=== PATIENT | male | born 1960 | race Caucasian/White ===

== ENCOUNTER 2022-05-30 09:13 | Inpatient (IN) ==
[2022-05-30] MEDS ORDERED: IOPAMIDOL 100 ML BOTTLE IV ONE (09:14)
--- NOTE | 2022-05-30 09:24 | Emergency Department Note ---
HPI General Chief complaint: Constipation Stated complaint: Trouble breathing/sleeping Time Seen by Provider: 05/30/22 09:23 Source: patient Mode of arrival: ambulatory Limitations: no limitations History of Present Illness HPI Narrative: Narrative: Patient is a 61-year-old male with a complex past medical history who presents to the emergency department due to abdominal pain and absence of bowel movement for the last 4 to 5 days. Patient states that he has had a bowel obstruction previously, and that he had similar symptoms at that time. He endorses absence of bowel movement for 4 to 5 days, but does endorse continued gas. He states that he has mild abdominal pain and also has developed nausea and vomiting this morning. He on review of systems also endorses worsening shortness of breath and absence of urination over the last 2 days. He denies any other symptoms at this time. Related Data Previous Rx's Medication Instructions Recorded aspirin 81 mg tablet,delayed 81 mg PO QDAY #90 tabs 08/25/20 release (Adult Low Dose Aspirin) multivitamin 1 tab PO QAM #90 tabs 08/25/20 omega-3 fatty acids 1,000 mg 1,000 mg PO QDAY #90 caps 08/25/20 capsule (Fish Oil Concentrate) omeprazole magnesium 20 mg 20 mg PO QDAY #90 tabs 08/25/20 tablet,delayed release (Prilosec OTC) losartan 100 mg tablet 100 mg PO QDAY #90 tabs 01/11/22 montelukast 10 mg tablet 10 mg PO QDAY #90 tabs 02/10/22 albuterol sulfate 90 mcg/actuation 2 inh inhalation Q6H PRN shortness 03/02/22 breath activated powder inhaler of breath or wheezing #1 ea fluticasone fur. 100 mcg-umeclid 1 inh inhalation Q24H #180 ea 03/02/22 62.5 mcg-vilant 25 mcg inhalat.powder (Trelegy Ellipta) trazodone 50 mg tablet 100 mg PO QHS PRN insomnia #180 04/05/22 tabs furosemide 20 mg tablet (Lasix) 20 mg PO QDAY #30 tabs 05/21/22 sertraline 25 mg tablet 25 mg PO QDAY #60 tabs 05/26/22 Allergies Allergy/AdvReac Type Severity Reaction Status Date / Time No Known Drug Allergies Allergy Verified 05/30/22 08:30 Review of Systems ROS ROS Narrative: Narrative: Constitutional: Denies fever or weakness Eyes: Denies eye pain or vision change ENT ED: Denies throat pain, hearing loss or rhinorrhea Cardiovascular: Reports dyspnea on exertion, orthopnea and edema; Denies chest pain Respiratory: Reports shortness of breath; Denies cough Gastrointestinal: Reports abdominal pain, nausea and vomiting; Denies diarrhea, constipation, hematochezia or melena Genitourinary: Reports other (Decreased frequency of urination); Denies dysuria, frequency or hematuria Musculoskeletal: Denies back pain or myalgia Integumentary: Denies rash or lesions Neurological: Denies headache, weakness, numbness, confusion, abnormal gait or dizziness Psychiatric: Denies anxiety Endocrine: Denies fatigue or polyuria Hematological/Lymphatic: Denies easy bleeding or easy bruising PFSH Narrative Patient History Narrative: Narrative: Medical/Surgical/Family History All Active Problems (Updated 05/30/22 @ 15:06 by Stef Manning MD) CHF exacerbation (Acute) Pulmonary hypertension (Acute) Restrictive lung disease (Acute) Nocturnal hypoxemia (Acute) Bilateral pleural effusion (Acute) CHF (congestive heart failure) (Acute) Breath shortness (Acute) Obstructive sleep apnea (Acute) Chronic GERD (Acute) Dyspnea (Acute) Long COVID (Chronic) Pneumonia due to COVID-19 virus (Acute) Viral syndrome (Acute) Bronchitis (Acute) No pertinent family history (Chronic) Seasonal affective disorder (Chronic) Depression (Chronic) Fasting hyperglycemia (Chronic) Osteoarthritis of left hip (Chronic) Chronic insomnia (Chronic) Dysphagia, unspecified (Chronic) Tinnitus (Chronic) Hearing loss (Chronic) Somatic dysfunction of lumbar region (Chronic) Somatic dysfunction of spine, sacral (Chronic) Right hip pain (Chronic) Bursitis of right shoulder (Chronic) Lumbar radiculopathy (Chronic) Paresthesia (Chronic) Heart murmur, systolic (Chronic) Actinic keratosis (Chronic) Dysphagia, oropharyngeal phase (Chronic) Patent foramen ovale (Chronic) Mitral regurgitation (Chronic) Medical History (Updated 05/30/22 @ 15:06 by Stef Manning MD) Actinic keratosis Bronchitis Bursitis of right shoulder Chronic GERD Chronic insomnia Depression Dysphagia, oropharyngeal phase Dysphagia, unspecified Dyspnea Fasting hyperglycemia GERD (gastroesophageal reflux disease) Hearing loss Heart murmur, systolic Hyperlipidemia Hypertension Long COVID Lumbar radiculopathy Mitral regurgitation No pertinent family history Nocturnal hypoxemia Obstructive sleep apnea Osteoarthritis of left hip Paresthesia Patent foramen ovale Pulmonary hypertension Restrictive lung disease Right hip pain Seasonal affective disorder Somatic dysfunction of lumbar region Somatic dysfunction of spine, sacral Tinnitus Surgical History No pertinent past surgical history Family History Other No pertinent family history Social History Smoking Status: Never smoker and Smokeless tobacco Exam Narrative Narrative: Narrative: General Limitations: no limitations General appearance: Present alert and in no apparent distress; Absent anxious, appears intoxicated or sleepy Head Head: Present atraumatic and normocephalic Eye Eye: Present PERRL and EOMI; Absent scleral icterus or nystagmus ENT ENT: Present mucous membranes moist; Absent nasal congestion Neck Neck: Present full ROM; Absent tenderness Chest Chest: Present normal inspection and symmetric chest wall rise; Absent tenderness Respiratory Respiratory: Present normal lung sounds bilaterally; Absent respiratory distress or accessory muscle use Cardiovascular Cardiovascular: Present normal rhythm, tachycardia and normal heart sounds Adbominal Abdominal: Present soft, tenderness (Mild and generalized) and normal bowel sounds; Absent distention, guarding, rebound, rigidity, Delgado's sign, Rovsing's sign or tenderness at McBurney's Point Extremities Extremities: Present normal inspection and full ROM; Absent tenderness Back Back: Present normal inspection and full ROM; Absent tenderness Neurological Neurological: Present alert and oriented X3 Psychiatric Psychiatric: Present normal affect and normal mood Skin Skin: Present warm (WNL), dry and normal color Course Vital Signs Vital signs: Vital Signs Temperature 97.7 F 05/30/22 09:13 Pulse Rate 131 H 05/30/22 09:13 Respiratory Rate 19 05/30/22 09:13 Blood Pressure 157/107 05/30/22 09:13 Pulse Oximetry (%) 96 05/30/22 09:13 Oxygen Delivery Method 05/30/22 09:13 Temperature 97.7 F 05/30/22 09:16 Pulse Rate 108 H 05/30/22 14:29 Respiratory Rate 19 05/30/22 09:16 Blood Pressure 147/119 05/30/22 14:01 Pulse Oximetry (%) 96 05/30/22 14:29 Oxygen Delivery Method 05/30/22 13:00 Oxygen Flow Rate (L/min) 2 05/30/22 13:00 [facility] MDM Narrative Medical decision making narrative: Narrative: Patient is a 61-year-old male Who presents to the emergency department due to concern for bowel obstruction and shortness of breath. Absence of bowel movement for the last 4 to 5 days is concerning for potential bowel obstruction, but patient has been passing gas. Patient has had decreased fluid and food intake, so it is possible that decreased bowel movements is for this reason. It is also possible patient has an ileus. Patient shortness of breath is concerning due to history of CHF, and patient's orthopnea and dyspnea on exertion at this time. Patient CT scan is reassuring that there is not a bowel obstruction at this time, but there is sign of edema. Patient's labs do show increased liver function tests. Patient does have an elevated BNP, and is desaturating intermittently at this time. These are concerning for CHF exacerbation especially with history of absence of urination over the last 2 days. I have given him a dose of IV Lasix with some improvement in his symptoms, but he continues to desaturate. For this reason I spoke to Dr. Harding who agreed to see and evaluate patient for admission. Lab Data Result diagrams: 05/30/22 09:46 Labs: Lab Results 05/30/22 05/30/22 05/30/22 Range/Units 09:45 09:46 09:46 WBC 13.8 H (4.5-11.0) K/mcL RBC 4.68 (4.63-6.08) M/mcL Hgb 14.8 (13.7-17.5) g/dL Hct 43.9 (40.1-51.0) % POC Hct 45.0 (41-55) MCV 93.8 (80.0-100.0) fL MCH 31.6 (26.0-34.0) pg MCHC 33.7 (31.0-36.0) g/dL RDW 12.8 (11.5-14.5) % Plt Count 273 (140-440) K/mcL MPV 10.6 (8.8-12.5) fL Immature Gran % (Auto) 0.6 H (0.0-0.5) % Neut % (Auto) 77.2 (38.0-78.0) % Lymph % (Auto) 10.7 L (15.5-49.0) % Mcmullen % (Auto) 10.7 (1.0-12.0) % Eos % (Auto) 0.4 (0.0-7.0) % Baso % (Auto) 0.4 (0.0-2.0) % Lymph # (Auto) 1.48 L (1.50-4.80) K/mcL Mcmullen # (Auto) 1.47 H (0.10-0.90) K/mcL Eos # (Auto) 0.06 (0.00-0.70) K/mcL Baso # (Auto) 0.05 (0.00-0.30) K/mcL Immature Gran # 0.08 H (0.00-0.05) K/mcl Absolute Neutrophils 10.64 H (1.80-8.00) K/mcL POC Sodium 139 (133-145) POC Potassium 3.5 (3.3-5.1) POC Chloride 100 (96-108) POC Total CO2 27.0 (22-30) POC BUN 31 H (6-20) POC Creatinine 1.1 (0.6-1.2) POC Glucose 120 H (70-105) POC WB Ioniz Calcium 1.15 L (1.16-1.32) Total Bilirubin 3.2 H (0.1-1.0) mg/dL Direct Bilirubin 1.3 H (<0.3) mg/dL AST 93 H (<40) U/L ALT 170 H (<40) U/L Alkaline Phosphatase 156 H (39-117) U/L NT-Pro-B Natriuret Pep (<125.0) pg/mL Total Protein 6.8 (5.9-8.4) gm/dL Albumin 4.5 (3.2-5.2) gm/dL Globulin 2.3 (2.2-3.7) gm/dL Lipase 32 (7-60) U/L 05/30/22 05/30/22 Range/Units 09:46 11:12 WBC (4.5-11.0) K/mcL RBC (4.63-6.08) M/mcL Hgb (13.7-17.5) g/dL Hct (40.1-51.0) % POC Hct (41-55) MCV (80.0-100.0) fL MCH (26.0-34.0) pg MCHC (31.0-36.0) g/dL RDW (11.5-14.5) % Plt Count (140-440) K/mcL MPV (8.8-12.5) fL Immature Gran % (Auto) (0.0-0.5) % Neut % (Auto) (38.0-78.0) % Lymph % (Auto) (15.5-49.0) % Mcmullen % (Auto) (1.0-12.0) % Eos % (Auto) (0.0-7.0) % Baso % (Auto) (0.0-2.0) % Lymph # (Auto) (1.50-4.80) K/mcL Mcmullen # (Auto) (0.10-0.90) K/mcL Eos # (Auto) (0.00-0.70) K/mcL Baso # (Auto) (0.00-0.30) K/mcL Immature Gran # (0.00-0.05) K/mcl Absolute Neutrophils (1.80-8.00) K/mcL POC Sodium (133-145) POC Potassium (3.3-5.1) POC Chloride (96-108) POC Total CO2 (22-30) POC BUN (6-20) POC Creatinine 1.1 (0.6-1.2) POC Glucose (70-105) POC WB Ioniz Calcium (1.16-1.32) Total Bilirubin (0.1-1.0) mg/dL Direct Bilirubin (<0.3) mg/dL AST (<40) U/L ALT (<40) U/L Alkaline Phosphatase (39-117) U/L NT-Pro-B Natriuret Pep 5846.0 H (<125.0) pg/mL Total Protein (5.9-8.4) gm/dL Albumin (3.2-5.2) gm/dL Globulin (2.2-3.7) gm/dL Lipase (7-60) U/L Discharge Plan Patient/Caregiver Discharge Instructions Pt seen by LOADER ENGINEER/PA only: No Clinical Impression: CHF exacerbation Patient Disposition: Xfer As Inpt ([facility]) Follow up with: Rodrigo Barrera PA-C [Primary Care Provider] - Prescriptions: No Action trazodone 50 mg tablet 100 mg PO QHS PRN (Reason: insomnia) Qty: 180 1RF sertraline 25 mg tablet 25 mg PO QDAY Qty: 60 0RF aspirin [Adult Low Dose Aspirin] 81 mg tablet,delayed release (DR/EC) 81 mg PO QDAY Qty: 90 3RF multivitamin Tablet 1 tab PO QAM Qty: 90 3RF omega-3 fatty acids [Fish Oil Concentrate] 1,000 mg capsule 1,000 mg PO QDAY Qty: 90 3RF Rx Instructions: 4 daily omeprazole magnesium 20 mg tablet,delayed release 20 mg tablet,delayed release (DR/EC) 20 mg PO QDAY Qty: 90 3RF Trelegy Ellipta 100-62.5-25 mcg blister with device 0RF losartan 100 mg tablet 100 mg PO QDAY Qty: 90 3RF montelukast 10 mg tablet 10 mg PO QDAY Qty: 90 1RF albuterol sulfate 90 mcg/actuation aerosol powdr breath activated 2 inh inhalation Q6H PRN (Reason: shortness of breath or wheezing) Qty: 1 0RF Trelegy Ellipta 100-62.5-25 mcg blister with device 1 inh inhalation Q24H Qty: 180 0RF furosemide [Lasix] 20 mg tablet 20 mg PO QDAY Qty: 30 0RF
[2022-05-30 09:49] LABS: POC Calcium, Ionized 1.15 (1.16-1.32); POC Creatinine 1.1 (0.6-1.2); POC Potassium 3.5 (3.3-5.1)
[2022-05-30 10:47] LABS: Basophils # (Auto) 0.05 K/mcL (0.00-0.30); Basophils % (Auto) 0.4 % (0.0-2.0); Eosinophils # (Auto) 0.06 K/mcL (0.00-0.70); Eosinophils % (Auto) 0.4 % (0.0-7.0); Hematocrit 43.9 % (40.1-51.0); Hemoglobin 14.8 g/dL (13.7-17.5); Lymphocytes # (Auto) 1.48 K/mcL (1.50-4.80); Lymphocytes % (Auto) 10.7 % (15.5-49.0); Mean Cell Volume 93.8 fL (80.0-100.0); Mean Corpuscular HGB Conc 33.7 g/dL (31.0-36.0); Mean Platelet Volume 10.6 fL (8.8-12.5); Monocytes # (Auto) 1.47 K/mcL (0.10-0.90); Monocytes % (Auto) 10.7 % (1.0-12.0); Neutrophils % (Auto) 77.2 % (38.0-78.0); Platelet Count 273 K/mcL (140-440); RBC 4.68 M/mcL (4.63-6.08); Red Cell Distribution Width 12.8 % (11.5-14.5); WBC 13.8 K/mcL (4.5-11.0)
[2022-05-30 11:01] LABS: ALT/SGPT 170 U/L (<40); AST/SGOT 93 U/L (<40); Albumin 4.5 gm/dL (3.2-5.2); Alkaline Phosphatase 156 U/L (39-117); Bilirubin,Direct 1.3 mg/dL (<0.3); Bilirubin,Total 3.2 mg/dL (0.1-1.0); Globulin 2.3 gm/dL (2.2-3.7)
--- NOTE | 2022-05-30 11:17 | Cat Scan Report ---
CLINICAL INFORMATION: Abdominal pain COMPARISON: Chest CT one week prior 05/21/2022. TECHNIQUE: Following enteric contrast, 80 cc of Isovue-370 were injected intravenously, and 60 seconds later, 0.625 mm helical slices were obtained from the mid heart through the subtrochanteric regions. Following reconstruction, 2.5 mm sagittal, coronal and axial reformatted images were processed and reviewed at bone, lung and soft tissue windows. Five minutes later, 0.625 mm helical slices were obtained from the mid heart through the kidneys and viewed at soft tissue windows.The exam was performed using radiation dose optimization techniques including, but not limited to, automated exposure control, adjustment of the mA and/or kV according to patient size and use of iterative reconstruction technique. FINDINGS: The lung bases are now clear and the effusions have resolved. No effusions. The visualized heart remains mildly enlarged. Abdominal images show mild wall thickening the gallbladder with pericholecystic fluid. The liver is inhomogeneous and slightly decreased in size with asymmetric enlargement of the caudate lobe. Findings suggestive of mild cirrhosis. No focal hepatic lesions. Small amount of ascites is now seen in the perihepatic, perisplenic and deep true pelvic regions. No evidence of portal hypertension or varices. No adenopathy or free air. Both kidneys are normal and symmetric in size, configuration and attenuation. There appears to be a 4.5 mm nonobstructing stone within a superior calyx left kidney. No other renal lesions. Both adrenal glands, spleen, pancreas and aorta are normal in size, configuration and attenuation without focal lesion. Pelvic images show mild prostate enlargement spanning 6 x 3.5 cm. Urinary bladder is straightening mild diffuse wall thickening suggesting chronic bladder outlet narrowing from prostatism. Multiple sigmoid diverticula appreciated, no evidence of diverticulitis. The remainder of the colon, small bowel, appendix region and stomach are grossly normal. Bone windows show left total hip prostheses in anatomic alignment without loosening or infection. No focal osseous abnormality. IMPRESSION: 1. Probable mild cirrhosis with a small amount of ascites. No evidence of portal hypertension or varices. Please correlate with LFTs and other clinical history supportive or refutive of cirrhosis. Ascites is new from the chest CT one week prior. 2. Mild gallbladder enlargement with pericholecystic fluid. This may be related to the cirrhosis rather than cholecystitis. If there is clinical support for cholecystitis, consider gallbladder ultrasound. 3. 4.5 mm nonobstructing stone-superior calyx left kidney 4. Interval resolution CHF pattern in the lung bases since the comparison exam one week ago. The heart remains mildly enlarged Interpreted and Authenticated by: Pino Osorio 05/30/22
--- NOTE | 2022-05-30 11:33 | XRay Report ---
CLINICAL INFORMATION: Follow-up CHF. Dyspnea COMPARISON: 05/21/2022 TECHNIQUE: Portable FINDINGS: Moderate cardiomegaly is unchanged. Mediastinum is normal. Upper lobe pulmonary vessels show mild persistent redistribution. Interstitial edema, previously seen has cleared however. There are no infiltrates or effusions. MALUNIFIED old right clavicular fracture seen as before. IMPRESSION: Mild CHF-improved from previous exam. Interpreted and Authenticated by: Pino Osorio 05/30/22
[2022-05-30] MEDS ORDERED: FUROSEMIDE 100 MG/10 ML VIAL IV ONE (11:55)
--- NOTE | 2022-05-30 17:08 | Internal Med History&Physical ---
HPI History of Present Illness Patient information: Note initiated : 05/30/22 at 4:58 pm Service Date, if different from initiated Date: [] Patient: Kartik Garcia a 61 y/o M admitted on for Trouble breathing/sleeping. Chief Complaint: [] History of present illness: Mr. Garcia is a 61 year old M Presents the ED with shortness of breath and orthopnea. Patient was diagnosed with heart failure from the ED on May 21. He was discharged with Lasix 20 mg daily. He was urinating well on the Lasix until the past few days he stopped putting out as much urine. Denies any increased swelling in his legs. Has some stomach discomfort from bloating he says related to constipation although is feeling little better, he did have a bowel movement this morning. He has not seen cardiology yet but has appointment on the . He also follows with Dr. Griffin for restrictive lung disease or COPD. Just put on home oxygen patient believes several liters. Does have history of obstructive sleep apnea but does not always wear CPAP. In the ED he was felt to have worsening of his CHF. Patient found to have a mild leukocytosis but is afebrile and chest x-ray no focal pneumonia. Patient elevated bilirubin and denies any focal abdominal pain. Also has mild transaminitis. Review of Systems: Pertinent positives as above. Denies headache/fever/chills/nausea/vomiting/chest or abdominal pain/cough/dyspnea/diarrhea. Remaining 10 point review of system reviewed negative PFSH PFSH All Active Problems (Updated 05/30/22 @ 15:06 by Stef Manning MD) CHF exacerbation (Acute) Pulmonary hypertension (Acute) Restrictive lung disease (Acute) Nocturnal hypoxemia (Acute) Bilateral pleural effusion (Acute) CHF (congestive heart failure) (Acute) Breath shortness (Acute) Obstructive sleep apnea (Acute) Chronic GERD (Acute) Dyspnea (Acute) Long COVID (Chronic) Pneumonia due to COVID-19 virus (Acute) Viral syndrome (Acute) Bronchitis (Acute) No pertinent family history (Chronic) Seasonal affective disorder (Chronic) Depression (Chronic) Fasting hyperglycemia (Chronic) Osteoarthritis of left hip (Chronic) Chronic insomnia (Chronic) Dysphagia, unspecified (Chronic) Tinnitus (Chronic) Hearing loss (Chronic) Somatic dysfunction of lumbar region (Chronic) Somatic dysfunction of spine, sacral (Chronic) Right hip pain (Chronic) Bursitis of right shoulder (Chronic) Lumbar radiculopathy (Chronic) Paresthesia (Chronic) Heart murmur, systolic (Chronic) Actinic keratosis (Chronic) Dysphagia, oropharyngeal phase (Chronic) Patent foramen ovale (Chronic) Mitral regurgitation (Chronic) Medical History (Updated 05/30/22 @ 15:06 by Stef Manning MD) Actinic keratosis Bronchitis Bursitis of right shoulder Chronic GERD Chronic insomnia Depression Dysphagia, oropharyngeal phase Dysphagia, unspecified Dyspnea Fasting hyperglycemia GERD (gastroesophageal reflux disease) Hearing loss Heart murmur, systolic Hyperlipidemia Hypertension Long COVID Lumbar radiculopathy Mitral regurgitation No pertinent family history Nocturnal hypoxemia Obstructive sleep apnea Osteoarthritis of left hip Paresthesia Patent foramen ovale Pulmonary hypertension Restrictive lung disease Right hip pain Seasonal affective disorder Somatic dysfunction of lumbar region Somatic dysfunction of spine, sacral Tinnitus Surgical History No pertinent past surgical history Family History Other No pertinent family history Social History marital status: occupational status: employed occupation: [employer] smoking status: Never smoker and Smokeless tobacco Smokeless tobacco user details: Former MEDS[employer]ALLERGIES Home Medications and Allergies Home Medications Medication Instructions Recorded Confirmed Type aspirin 81 mg tablet,delayed 81 mg PO QDAY #90 tabs 08/25/20 05/30/22 Rx release (Adult Low Dose Aspirin) multivitamin 1 tab PO QAM #90 tabs 08/25/20 05/30/22 Rx omega-3 fatty acids 1,000 mg 1,000 mg PO QDAY #90 caps 08/25/20 05/30/22 Rx capsule (Fish Oil Concentrate) omeprazole magnesium 20 mg 20 mg PO QDAY #90 tabs 08/25/20 05/30/22 Rx tablet,delayed release (Prilosec OTC) losartan 100 mg tablet 100 mg PO QDAY #90 tabs 01/11/22 05/30/22 Rx montelukast 10 mg tablet 10 mg PO QDAY #90 tabs 02/10/22 05/30/22 Rx albuterol sulfate 90 mcg/actuation 2 inh inhalation Q6H PRN shortness 03/02/22 05/30/22 Rx breath activated powder inhaler of breath or wheezing #1 ea fluticasone fur. 100 mcg-umeclid 1 inh inhalation Q24H #180 ea 03/02/22 05/30/22 Rx 62.5 mcg-vilant 25 mcg inhalat.powder (Trelegy Ellipta) trazodone 50 mg tablet 100 mg PO QHS PRN insomnia #180 04/05/22 05/30/22 Rx tabs furosemide 20 mg tablet (Lasix) 20 mg PO QDAY #30 tabs 05/21/22 05/30/22 Rx sertraline 25 mg tablet 25 mg PO QDAY #60 tabs 05/26/22 05/30/22 Rx Allergies Allergy/AdvReac Type Severity Reaction Status Date / Time No Known Drug Allergies Allergy Verified 05/30/22 08:30 EXAM Constitutional Vitals: Temp Pulse Resp BP Pulse Ox O2 Del Method O2 Flow Rate 97.7 F 108 H 19 162/126 97 2 05/30/22 09:16 05/30/22 16:55 05/30/22 09:16 05/30/22 16:01 05/30/22 16:55 05/30/22 13:00 05/30/22 13:00 Exam: General: Alert, Awake, No acute Distress Eyes/N/T: EOMI, PERRL Head/Neck: neck supple, normocephalic atraumatic, HJR CV: RRR, 3/6SM Pulm: rales b/l, no wheezing Abd: soft, nontender, +BS x4 Ext: no clubbing/cyanosis/edema Neuro: Alert, no focal deficits, moves all extremities, CN 2-12 grossly intact, symmetrical strength b/l upper/lower, sensations intact b/l upper/lower Skin: warm/dry DATA Data Completed and Pending Labs: Labs from last 24 hours 05/30/22 05/30/22 05/30/22 11:12 09:46 09:46 WBC RBC Hgb Hct POC Hct MCV MCH MCHC RDW Plt Count MPV Immature Gran % (Auto) Neut % (Auto) Lymph % (Auto) Ralls % (Auto) Eos % (Auto) Baso % (Auto) Lymph # (Auto) Ralls # (Auto) Eos # (Auto) Baso # (Auto) Immature Gran # Absolute Neutrophils POC Sodium POC Potassium POC Chloride POC Total CO2 POC BUN POC Creatinine 1.1 POC Glucose POC WB Ioniz Calcium Total Bilirubin 3.2 H Direct Bilirubin 1.3 H AST 93 H ALT 170 H Alkaline Phosphatase 156 H NT-Pro-B Natriuret Pep 5846.0 H Total Protein 6.8 Albumin 4.5 Globulin 2.3 Lipase 32 05/30/22 05/30/22 09:46 09:45 WBC 13.8 H RBC 4.68 Hgb 14.8 Hct 43.9 POC Hct 45.0 MCV 93.8 MCH 31.6 MCHC 33.7 RDW 12.8 Plt Count 273 MPV 10.6 Immature Gran % (Auto) 0.6 H Neut % (Auto) 77.2 Lymph % (Auto) 10.7 L Ralls % (Auto) 10.7 Eos % (Auto) 0.4 Baso % (Auto) 0.4 Lymph # (Auto) 1.48 L Ralls # (Auto) 1.47 H Eos # (Auto) 0.06 Baso # (Auto) 0.05 Immature Gran # 0.08 H Absolute Neutrophils 10.64 H POC Sodium 139 POC Potassium 3.5 POC Chloride 100 POC Total CO2 27.0 POC BUN 31 H POC Creatinine 1.1 POC Glucose 120 H POC WB Ioniz Calcium 1.15 L Total Bilirubin Direct Bilirubin AST ALT Alkaline Phosphatase NT-Pro-B Natriuret Pep Total Protein Albumin Globulin Lipase A/P Narrative A/P Narrative: A: *Acute on chronic diastolic CHF & valvular dz (TR) *Acute hypoxic respiratory failure: *COPD(on 2L@home us started today): *HANNY: on cpap *Hyperbilirubinemia (unconjugated) and Transaminitis: 2/2 above vs other *HTN: on ARB *GERD: *Depression: P: -IV lasix -i/o, weights, UOP -start BB when euvoliemic, cont ARB -GB/Liver u/s and f/u hepatic panel -wean O2 as able -cont IH's, CPAP - -Home medication clarification -f/u with Cardiology as scheduled -ppx: Lovenox Time Spent With Patient Time: Total time spent is greater than 50% in coordination of care (as documented) at patient's floor/unit and/or counseling patient: Total time spent with greater than 50% in coordination of care (as documented) at patient's floor/unit and/or counseling patient:: Greater than 70 minutes
[2022-05-30] MEDS ORDERED: LABETALOL 5 MG/ML ML IV PRN (19:17)
[2022-05-30] MEDS ORDERED: POTASSIUM CHLORIDE 40 MEQ in DEXTROSE 5% IN WATER 500 ML IV PRN (19:17)
[2022-05-30] MEDS ORDERED: ONDANSETRON 4 MG/2 ML VIAL IV PRN (19:17)
[2022-05-30] MEDS ORDERED: ENALAPRILAT 1.25 MG/ML VIAL IV PRN (19:17)
[2022-05-30] MEDS ORDERED: HYDROCHLOROTHIAZIDE 12.5 MG CAPSULE PO ONE (19:17)
[2022-05-30] MEDS ORDERED: POLYETHYLENE GLYCOL 3350 17 GM PACKET PO PRN (19:17)
[2022-05-30] MEDS ORDERED: IPRATROPIUM/ALBUTEROL 3 ML AMPUL.NEB NEB PRN (19:17)
[2022-05-30] MEDS ORDERED: POTASSIUM CHLORIDE 20 MEQ TABLET PO PRN ×2 (19:17)
[2022-05-30] MEDS ORDERED: SENNOSIDES 1 TABLET PO PRN (19:17)
[2022-05-30] MEDS ORDERED: MAGNESIUM SULFATE 2 GM/50 ML BAG IV PRN (19:17)
[2022-05-30 19:54] LABS: Eosinophils % (Manual) 1 % (0-7); Lymphocytes % 10 % (15-49); Monocytes % (Manual) 11 % (1-12); Platelet Estimate NORMAL (Normal); RBC Morphology NORMAL (Normal); Segmented Neutrophils % 78 % (38-78)
[2022-05-30] MEDS: DOCUSATE SODIUM 100 MG CAPSULE PO SCH (20:28)
[2022-05-30] MEDS: FUROSEMIDE 40 MG/4 ML VIAL IV SCH (20:28)
[2022-05-30] MEDS: 0.9 % SODIUM CHLORIDE 10 ML SYRINGE IV SCH (20:36)
[2022-05-30] MEDS ORDERED: METOPROLOL TARTRATE 5 MG/5 ML VIAL IV PRN (21:58)
[2022-05-31] MEDS: 0.9 % SODIUM CHLORIDE 10 ML SYRINGE IV SCH ×4 (05:50→22:00)
[2022-05-31 06:48] LABS: Basophils # (Auto) 0.09 K/mcL (0.00-0.30); Basophils % (Auto) 0.8 % (0.0-2.0); Eosinophils # (Auto) 0.41 K/mcL (0.00-0.70); Eosinophils % (Auto) 3.8 % (0.0-7.0); Hematocrit 43.9 % (40.1-51.0); Hemoglobin 14.4 g/dL (13.7-17.5); Lymphocytes # (Auto) 1.75 K/mcL (1.50-4.80); Lymphocytes % (Auto) 16.1 % (15.5-49.0); Mean Cell Volume 95.6 fL (80.0-100.0); Mean Corpuscular HGB Conc 32.8 g/dL (31.0-36.0); Mean Platelet Volume 10.3 fL (8.8-12.5); Monocytes # (Auto) 0.91 K/mcL (0.10-0.90); Monocytes % (Auto) 8.4 % (1.0-12.0); Neutrophils % (Auto) 70.5 % (38.0-78.0); Platelet Count 241 K/mcL (140-440); RBC 4.59 M/mcL (4.63-6.08); Red Cell Distribution Width 12.7 % (11.5-14.5); WBC 10.8 K/mcL (4.5-11.0)
[2022-05-31 07:31] LABS: ALT/SGPT 153 U/L (<40); AST/SGOT 74 U/L (<40); Albumin 3.9 gm/dL (3.2-5.2); Albumin/Globulin Ratio 1.6 (1.0-2.3); Alkaline Phosphatase 157 U/L (39-117); Bilirubin,Direct 0.8 mg/dL (<0.3); Bilirubin,Total 2.1 mg/dL (0.1-1.0); Blood Urea Nitrogen 20 mg/dL (6-20); Calcium 9.1 mg/dL (8.6-10.4); Carbon Dioxide 30 mmol/L (22-30); Chloride 99 mmol/L (96-108); Globulin 2.4 gm/dL (2.2-3.7); Glomerular Filtration Rate 72; Glucose 95 mg/dL (70-105); Lactate Dehydrogenase 265 U/L (135-225); Phosphorous 3.6 mg/dL (2.5-4.5); Triglycerides 117 mg/dL (<150); Uric Acid 8.3 mg/dL (2.5-8.0)
[2022-05-31] MEDS ORDERED: traZODone HCL 50 MG TABLET PO PRN (07:46)
--- NOTE | 2022-05-31 07:48 | Internal Med Progress Note ---
SUBJECTIVE Subjective Patient information: Note initiated : 05/31/22 at 7:37 am Service Date, if different from initiated Date: [] Patient: Kartik Garcia 61 y/o M admitted on 05/30/22 for Trouble br eathing/sleeping-CHF,SOB,Hypoxia. Chief Complaint: [] Interval history: History of present illness: Mr. Garcia is a 61 year old M Presents the ED with shortness of breath and orthopnea. Patient was diagnosed with heart failure from the ED on May 21. He was discharged with Lasix 20 mg daily. He was urinating well on the Lasix until the past few days he stopped putting out as much urine. Denies any increased swelling in his legs. Has some stomach discomfort from bloating he says related to constipation although is feeling little better, he did have a bowel movement this morning. He has not seen cardiology yet but has appointment on the . He also follows with Dr. Griffin for restrictive lung disease or COPD. Just put on home oxygen patient believes several liters. Does have history of obstructive sleep apnea but does not always wear CPAP. In the ED he was felt to have worsening of his CHF. Patient found to have a mild leukocytosis but is afebrile and chest x-ray no focal pneumonia. Patient elevated bilirubin and denies any focal abdominal pain. Also has mild transaminitis. 05/31 Atrial flutter with RVR last night. Patient with known flutter since ED visit on 21 May. Heart rate improved with IV Lopressor. Start oral beta-eleonora this morning. Patient feeling better today. Breathing better. Bilirubin slightly improved. Transaminitis slightly improved. proBNP slightly improved. Continue diuresis. Review of Systems: denies headache/fever/chills/nausea/vomiting/chest or abdominal pain/cough/dyspnea/diarrhea. Otherwise see above. Constitutional Vitals: Vital Signs Temp Pulse Resp BP Pulse Ox O2 Del Method O2 Flow Rate 97.2 F 94 H 16 138/108 96 2 05/31/22 04:01 05/31/22 06:08 05/31/22 06:08 05/31/22 06:00 05/31/22 06:08 05/31/22 06:08 05/31/22 06:08 Period Temp Pulse Resp BP Sys/Ken Pulse Ox O2 Del Method O2 Flow Rate Last 24 Hr 97.2 F-97.8 F 53-141 16-30 126-166/103-128 83-98 Nasal Cannula-Room Air 2-2 Intake and Output 05/30/22 05/31/22 05/31/22 21:59 05:59 13:59 Intake Total 360 Output Total 1275 1350 Balance -1275 -990 Weight 94.12 kg Intake & Output: Intake & Output 05/30/22 05/31/22 05/31/22 21:59 05:59 13:59 Intake Total 360 Output Total 1275 1350 Balance -1275 -990 Weight 94.12 kg Intake: Oral 360 Output: Void Amount 1275 1350 Other: Meal Grapes Urine Appearance Clear Clear Urine Color Dark Yellow Bright Yellow Exam: General: Alert, Awake, No acute Distress Eyes/N/T: EOMI Head/Neck: neck supple, CV: Mildly tacky and mostly regular, 3/6SM Pulm: rales b/l, no wheezing Abd: soft, nontender, +BS x4 Ext: no clubbing/cyanosis/edema Neuro: Alert, no focal deficits, moves all extremities, Skin: warm/dry OBJ DATA Labs CBC & Chem 7: 05/31/22 05:51 05/31/22 05:51 Labs: Abnormal Lab Results 05/31/22 05/31/22 05/30/22 05:51 05:51 17:05 WBC RBC 4.59 L Immature Gran % (Auto) Lymph % (Auto) Lymph # (Auto) [place] # (Auto) 0.91 H Lymphocytes % 10 L Immature Gran # Absolute Neutrophils POC BUN POC Glucose Uric Acid 8.3 H POC WB Ioniz Calcium Total Bilirubin 2.1 H Direct Bilirubin 0.8 H GGT 471 H AST 74 H ALT 153 H Alkaline Phosphatase 157 H Lactate Dehydrogenase 265 H NT-Pro-B Natriuret Pep 4300.0 H 05/30/22 05/30/22 05/30/22 11:12 09:46 09:46 WBC 13.8 H RBC Immature Gran % (Auto) 0.6 H Lymph % (Auto) 10.7 L Lymph # (Auto) 1.48 L [place] # (Auto) 1.47 H Lymphocytes % Immature Gran # 0.08 H Absolute Neutrophils 10.64 H POC BUN POC Glucose Uric Acid POC WB Ioniz Calcium Total Bilirubin 3.2 H Direct Bilirubin 1.3 H GGT AST 93 H ALT 170 H Alkaline Phosphatase 156 H Lactate Dehydrogenase NT-Pro-B Natriuret Pep 5846.0 H 05/30/22 09:45 WBC RBC Immature Gran % (Auto) Lymph % (Auto) Lymph # (Auto) [place] # (Auto) Lymphocytes % Immature Gran # Absolute Neutrophils POC BUN 31 H POC Glucose 120 H Uric Acid POC WB Ioniz Calcium 1.15 L Total Bilirubin Direct Bilirubin GGT AST ALT Alkaline Phosphatase Lactate Dehydrogenase NT-Pro-B Natriuret Pep Meds: Medications Albuterol/Ipratropium (Ipratropium/Albuterol 3 Ml Ampul.Neb) 3 ml NEB Q4HP PRN PRN Reason: Shortness Of Breath Docusate Sodium (Docusate Sodium 100 Mg Capsule) 100 mg PO BID [facility] Last Admin: 05/30/22 20:28 Dose: 100 mg Enalaprilat (Enalaprilat 1.25 Mg/Ml Vial) 0 mg IV Q2HP PRN PRN Reason: Hypertension Enoxaparin Sodium (Enoxaparin 40 Mg/0.4 Ml Syringe) 40 mg SQ DAILY [facility] Furosemide (Furosemide 40 Mg/4 Ml Vial) 40 mg IV BIDD [facility] Last Admin: 05/30/22 20:28 Dose: 40 mg Potassium Chloride 40 meq/ (Dextrose) 520 mls @ 130 mls/hr IV UD PRN PRN Reason: Potassium < 3 Magnesium Sulfate (Magnesium Sulfate) 2 gm in 50 mls @ 50 mls/hr IV UD PRN PRN Reason: Magnesium </= 1.6 Labetalol HCl (Labetalol 5 Mg/Ml Ml) 0 mg IV Q2HP PRN PRN Reason: Hypertension Last Admin: 05/30/22 20:29 Dose: 10 mg Metoprolol Tartrate (Metoprolol Tartrate 5 Mg/5 Ml Vial) 5 mg IV Q2HP PRN PRN Reason: Tachyarrhythmias, HR > 110 bpm Ondansetron HCl (Ondansetron 4 Mg/2 Ml Vial) 4 mg IV Q4HP PRN PRN Reason: Nausea And Vomiting Pneumococcal Polyvalent Vaccine (Pneumococcal 23-Ashley P-Sac Vac 0.5 Ml Syringe) 0.5 ml IM .ONCE ONE Stop: 06/01/22 10:01 Polyethylene Glycol (Polyethylene Glycol 3350 17 Gm Packet) 17 gm PO DAILYP PRN PRN Reason: Constipation Potassium Chloride (Potassium Chloride 20 Meq Tablet) 40 meq PO UD PRN PRN Reason: Potssium is 3-3.5 Last Admin: 05/30/22 22:33 Dose: 40 meq Potassium Chloride (Potassium Chloride 20 Meq Tablet) 40 meq PO UD PRN PRN Reason: Potassium < 3 Senna (Sennosides 1 Tablet) 2 tab PO DAILYP PRN PRN Reason: Constipation Sodium Chloride (0.9 % Sodium Chloride 10 Ml Syringe) 10 ml IV Q8 [place] Last Admin: 05/31/22 05:50 Dose: 10 ml A/P Narrative A/P Narrative: A: *Acute on chronic diastolic CHF & valvular dz (MR/TR) -good uop *Acute hypoxic respiratory failure: -on 2L NC with good sats *AFlutter w/rvr: noted on ED visit 05/21 -CHADSVASC=1. pt on asa *COPD(just started on home O2 from Pulmonology on day of admit): *HANNY: on cpap *Hyperbilirubinemia (unconjugated) and Transaminitis: 2/2 above vs other -liver u/s suggestive of possible cirrhosis *HTN: on ARB *GERD: *Depression: P: -IV lasix (increase home lasix upon d/c) -i/o, weights, UOP -start BB, cont ARB -wean O2 as able -cont IH's, CPAP - -f/u with Cardiology as scheduled -ppx: Lovenox / ppi Time Spent With Patient Time: Total time spent is greater than 50% in coordination of care (as documented) at patient's floor/unit and/or counseling patient: Total time spent with greater than 50% in coordination of care (as documented) at patient's floor/unit and/or counseling patient:: 25 - 35 minutes QUALITY Stroke Symptom Onset Unknown: No VTE Deep Vein Thrombosis/Pulmonary Embolism Present on Admission: No
[2022-05-31] MEDS: DOCUSATE SODIUM 100 MG CAPSULE PO SCH ×2 (08:52→21:14)
[2022-05-31] MEDS: FUROSEMIDE 40 MG/4 ML VIAL IV SCH ×2 (08:52→15:36)
[2022-05-31] MEDS: ENOXAPARIN 40 MG/0.4 ML SYRINGE SQ SCH (08:52)
[2022-05-31] MEDS: ASPIRIN 81 MG TAB.CHEW PO SCH (08:53)
[2022-05-31] MEDS: SERTRALINE 50 MG TABLET PO SCH (08:53)
[2022-05-31] MEDS: LOSARTAN 50 MG TABLET PO SCH (08:53)
[2022-05-31] MEDS: MONTELUKAST 10 MG TABLET PO SCH (08:54)
[2022-05-31] MEDS ORDERED: METOPROLOL SUCCINATE 25 MG TAB.XL.24H PO SCH (09:00)
[2022-05-31] MEDS: Fluticasone-Umeclidin-Vilanter [Trelegy Ellipta] Inhaler INH SCH (09:01)
[2022-05-31 09:51] LABS: Hepatitis B Surface Antigen Negative (Negative); Hepatitis C Virus Antibody Non-Reactive (Non-Reactive)
--- NOTE | 2022-05-31 10:01 | Ultrasound Report ---
CLINICAL INFORMATION: COMPARISON: None. FINDINGS: The liver is mildly enlarged with a vertical dimension of 17.7 cm in midclavicular line. Echotexture is slightly decreased with minimal nodular contour suggestive, but not diagnostic, of cirrhosis. There are no focal hepatic lesions. Gallbladder wall is diffusely thickened: 5 mm. No stones identified. Common bile duct is normal at 3 mm. The pancreas is unremarkable. Small amount of ascites noted. IMPRESSION: Findings suggestive, but not diagnostic, of mild cirrhosis. Consider ultrasound-guided biopsy for tissue diagnosis and cirrhosis staging. Moderate diffuse wall thickening the gallbladder may be a sympathetic response to adjacent hepatopathy versus acalculous cholecystitis. Please correlate with other clinical history. Consider hepatobiliary scan Interpreted and Authenticated by: Pino Osorio 05/31/22
[2022-05-31] MEDS ORDERED: HYDROCHLOROTHIAZIDE 12.5 MG CAPSULE PO ONE (10:58)
--- NOTE | 2022-05-31 13:01 | EKG ---
[facility] Test Date: 2022-05-30 Pat Name: Kartik Garcia Department: ICU Room: 116 Gender: Male [employer]: : 1960 Requested By: Noah Harding Order Number: [id number] Reading MD: Giovanni Palomo Measurements Intervals [place] Rate: 95 P: [place]: QRS: 15 QRSD: 115 T: 42 QT: 402 QTc: 506 Interpretive Statements Atrial flutter Incomplete right bundle branch block Electronically Signed On 05-31-2022 13:01:29 PDT by Giovanni Palomo /[email or web address]/[email or web address]/[id number]
--- NOTE | 2022-05-31 13:29 | Discharge Summary ---
Discharge Provider Provider IMPORTANT FOLLOW-UP INFORMATION FOR PCP: Patient information: Note initiated : 05/31/22 at 1:27 pm Service Date, if different from initiated Date: [] Patient: Kartik Garcia 61 y/o M admitted on 05/30/22 for Trouble breathing/sleeping-CHF,SOB,Hypoxia. Chief Complaint: [] Date of admission: 05/30/22 19:00 Discharge date: 06/01/22 Primary care physician: Rodrigo Barrera PA-C Consults: 05/30/22 Consult to Physician [CONS] Stat Comment: Consulting Provider: Noah Harding Reason For Exam: Physician to Consult COURSE Hospital Course Hospital course: History of present illness: Mr. Garcia is a 61 year old M Presents the ED with shortness of breath and orthopnea. Patient was diagnosed with heart failure from the ED on May 21. He was discharged with Lasix 20 mg daily. He was urinating well on the Lasix until the past few days he stopped putting out as much urine. Denies any increased swelling in his legs. Has some stomach discomfort from bloating he says related to constipation although is feeling little better, he did have a bowel movement this morning. He has not seen cardiology yet but has appointment on the . He also follows with Dr. Griffin for restrictive lung disease or COPD. Just put on home oxygen patient believes several liters. Does have history of obstructive sleep apnea but does not always wear CPAP. In the ED he was felt to have worsening of his CHF. Patient found to have a mild leukocytosis but is afebrile and chest x-ray no focal pneumonia. Patient elevated bilirubin and denies any focal abdominal pain. Also has mild transaminitis. 05/31 Atrial flutter with RVR last night. Patient with known flutter since ED visit on 21 May. Heart rate improved with IV Lopressor. Start oral beta-eleonora this morning. Patient feeling better today. Breathing better. Bilirubin slightly improved. Transaminitis slightly improved. proBNP slightly improved. Continue diuresis. 06/01 Doing well. Patient feeling much better breathing much better. Discharge to follow-up closely with PCP and cardiology. A: *Acute on chronic diastolic CHF & valvular dz (MR/TR) *Acute hypoxic respiratory failure: *AFlutter, chronic: noted on ED visit 05/21 -CHADSVASC=1, pt on asa *COPD(just started on home O2 from Pulmonology on day of admit): *HANNY: on cpap *Hyperbilirubinemia (unconjugated) and Transaminitis: 2/2 above vs other -liver u/s suggestive of possible cirrhosis *HTN: on ARB *GERD: *Depression: P: -increase home lasix upon d/c -toprol started -f/u with Cardiology as scheduled Discharge diagnosis: Acute on chronic diastolic heart failure and valvular disease acute hypoxic Secondary discharge diagnosis: Atrophic flutter COPD obstructive sleep apnea transaminitis and hyperbilirubinemia hypertension depression GERD Time Spent with Patient Time attestation: Total time spent providing and/or coordinating discharge services: Time spent: Greater than 30 minutes EXAM Constitutional Vitals: Temp Pulse Resp BP Pulse Ox O2 Del Method O2 Flow Rate 97.3 F 106 H 18 137/111 97 2 05/31/22 12:02 05/31/22 12:02 05/31/22 12:02 05/31/22 12:02 05/31/22 12:02 05/31/22 12:02 05/31/22 12:02 Discharge Data Data Completed and Pending Labs on day of discharge: Labs from last 24 hours 05/31/22 05/31/22 05/31/22 09:46 05:51 05:51 WBC 10.8 RBC 4.59 L Hgb 14.4 Hct 43.9 MCV 95.6 MCH 31.4 MCHC 32.8 RDW 12.7 Plt Count 241 MPV 10.3 Immature Gran % (Auto) 0.4 Neut % (Auto) 70.5 Lymph % (Auto) 16.1 [place] % (Auto) 8.4 Eos % (Auto) 3.8 Baso % (Auto) 0.8 Lymph # (Auto) 1.75 [place] # (Auto) 0.91 H Eos # (Auto) 0.41 Baso # (Auto) 0.09 Seg Neutrophils % Lymphocytes % Monocytes % (Manual) Eosinophils % (Manual) Immature Gran # 0.04 Absolute Neutrophils 7.64 Platelet Estimate RBC Morphology Sodium 139 Potassium 4.0 Chloride 99 Carbon Dioxide 30 Anion Gap 10.0 BUN 20 Creatinine 1.1 GFR Calculation 72 Glucose 95 Uric Acid 8.3 H Calcium 9.1 Phosphorus 3.6 Magnesium 2.4 Total Bilirubin 2.1 H Direct Bilirubin 0.8 H GGT 471 H AST 74 H ALT 153 H Alkaline Phosphatase 157 H Lactate Dehydrogenase 265 H NT-Pro-B Natriuret Pep 4300.0 H Total Protein 6.3 Albumin 3.9 Globulin 2.4 Albumin/Globulin Ratio 1.6 Triglycerides 117 Hepatitis A IgM Ab Non-reactive Hep Bs Antigen Negative Hep B Core IgM Ab Non-reactive Hepatitis C Antibody Non-reactive 05/30/22 17:05 WBC RBC Hgb Hct MCV MCH MCHC RDW Plt Count MPV Immature Gran % (Auto) Neut % (Auto) Lymph % (Auto) [place] % (Auto) Eos % (Auto) Baso % (Auto) Lymph # (Auto) [place] # (Auto) Eos # (Auto) Baso # (Auto) Seg Neutrophils % 78 Lymphocytes % 10 L Monocytes % (Manual) 11 Eosinophils % (Manual) 1 Immature Gran # Absolute Neutrophils Platelet Estimate Normal RBC Morphology Normal Sodium Potassium Chloride Carbon Dioxide Anion Gap BUN Creatinine GFR Calculation Glucose Uric Acid Calcium Phosphorus Magnesium Total Bilirubin Direct Bilirubin GGT AST ALT Alkaline Phosphatase Lactate Dehydrogenase NT-Pro-B Natriuret Pep Total Protein Albumin Globulin Albumin/Globulin Ratio Triglycerides Hepatitis A IgM Ab Hep Bs Antigen Hep B Core IgM Ab Hepatitis C Antibody Discharge Plan Patient/Caregiver Discharge Instructions Activity: increase activity as tolerated Diet: Regular Diet Activity Restrictions/Additional Instructions: Follow-up with cardiology as scheduled. Prescriptions: New metoprolol succinate 25 mg Tablet Extended Release 24 Hr 50 mg PO DAILY Qty: 100 0RF Continued trazodone 50 mg tablet 100 mg PO QHS PRN (Reason: insomnia) Qty: 180 1RF sertraline 25 mg tablet 25 mg PO QDAY Qty: 60 0RF aspirin [Adult Low Dose Aspirin] 81 mg tablet,delayed release (DR/EC) 81 mg PO QDAY Qty: 90 3RF multivitamin Tablet 1 tab PO QAM Qty: 90 3RF omega-3 fatty acids [Fish Oil Concentrate] 1,000 mg capsule 1,000 mg PO QDAY Qty: 90 3RF Rx Instructions: 4 daily omeprazole magnesium 20 mg tablet,delayed release 20 mg tablet,delayed release (DR/EC) 20 mg PO QDAY Qty: 90 3RF losartan 100 mg tablet 100 mg PO QDAY Qty: 90 3RF montelukast 10 mg tablet 10 mg PO QDAY Qty: 90 1RF albuterol sulfate 90 mcg/actuation aerosol powdr breath activated 2 inh inhalation Q6H PRN (Reason: shortness of breath or wheezing) Qty: 1 0RF Trelegy Ellipta 100-62.5-25 mcg blister with device 1 inh inhalation Q24H Qty: 180 0RF Changed furosemide [Lasix] 20 mg tablet 40 mg PO QDAY Qty: 30 0RF Follow Up Plan Follow up with: Rodrigo Barrera PA-C [Primary Care Provider] - Patient Disposition: Home, Self-Care Overall status at discharge: patient is progressing back to baseline Discharge Orders: Discharge Order (Routine); Ordered 06/01/22 Ordered By: Noah Harding PENDING SALE TO [facility] VTE Deep Vein Thrombosis/Pulmonary Embolism Present on Admission: No
[2022-05-31] MEDS ORDERED: LABETALOL 5 MG/ML ML IV PRN (18:57)
[2022-05-31] MEDS ORDERED: LABETALOL 5 MG/ML ML IV ONE (19:36)
[2022-06-01] MEDS: 0.9 % SODIUM CHLORIDE 10 ML SYRINGE IV SCH (06:00)
[2022-06-01 07:07] LABS: ALT/SGPT 134 U/L (<40); AST/SGOT 57 U/L (<40); Albumin 3.8 gm/dL (3.2-5.2); Albumin/Globulin Ratio 1.5 (1.0-2.3); Alkaline Phosphatase 163 U/L (39-117); Bilirubin,Direct 0.6 mg/dL (<0.3); Bilirubin,Total 2.1 mg/dL (0.1-1.0); Blood Urea Nitrogen 24 mg/dL (6-20); Calcium 9.2 mg/dL (8.6-10.4); Carbon Dioxide 30 mmol/L (22-30); Chloride 98 mmol/L (96-108); Globulin 2.5 gm/dL (2.2-3.7); Glomerular Filtration Rate 72; Glucose 96 mg/dL (70-105); Lactate Dehydrogenase 258 U/L (135-225); Phosphorous 3.6 mg/dL (2.5-4.5); Triglycerides 112 mg/dL (<150); Uric Acid 8.8 mg/dL (2.5-8.0)
[2022-06-01] MEDS ORDERED: OMEPRAZOLE 20 MG CAPSULE PO SCH (07:30)
[2022-06-01] MEDS: ENOXAPARIN 40 MG/0.4 ML SYRINGE SQ SCH (08:25)
[2022-06-01] MEDS: DOCUSATE SODIUM 100 MG CAPSULE PO SCH (08:26)
[2022-06-01] MEDS: ASPIRIN 81 MG TAB.CHEW PO SCH (08:27)
[2022-06-01] MEDS: MONTELUKAST 10 MG TABLET PO SCH (08:27)
[2022-06-01] MEDS: SERTRALINE 50 MG TABLET PO SCH (08:27)
[2022-06-01] MEDS: LOSARTAN 50 MG TABLET PO SCH (08:27)
[2022-06-01] MEDS: Fluticasone-Umeclidin-Vilanter [Trelegy Ellipta] Inhaler INH SCH (08:52)
[2022-06-01] MEDS ORDERED: FUROSEMIDE 40 MG TABLET PO SCH (09:00)
[2022-06-01] MEDS ORDERED: METOPROLOL SUCCINATE 25 MG TAB.XL.24H PO SCH (09:00)
[2022-06-01] MEDS ORDERED: PNEUMOCOCCAL 23-VAL P-SAC VAC 0.5 ML SYRINGE IM ONE (10:00)
[2022-06-01] MEDS ORDERED: FLU VACC QS2022-23(6MOS UP)/PF 60 MCG/0.5 ML SYRINGE IM ONE (10:00)
== END 2022-06-01 13:16 | disposition home or self-care (01) | DRG 291 ==
LOC: ED 09:13 → ICU 19:00
PROVIDERS: ADMIT Internal Medicine; ATTEND Internal Medicine